=== PATIENT | female | born 1955 | race Hispanic/Latino ===

== ENCOUNTER 2023-05-29 20:56 | Emergency (ER) | payer BC ==
[~2023-05-29] VITALS: Ht 160 cm; Wt 72.6 kg
[2023-05-29 22:43] LABS: INFLUENZAE A&B ANTIGEN (RAPID) NEGATIVE (NEGATIVE); RESPIRATORY SYNC. VIRUS NEGATIVE (NEGATIVE)
[2023-05-29] MEDS ORDERED: MEDROL4 M2 PO (23:18)
[2023-05-29] MEDS ORDERED: ONDANSETRON ODT4 MG SL (23:18)
[2023-05-29] MEDS ORDERED: BENZONATATE200 MG PO (23:18)
[2023-05-29 23:40] VITALS: BP 144/81; PULSE 71; RESP 18; TEMP 98.6; O2SAT 100
== END 2023-05-29 23:42 | disposition home or self-care (01) ==
LOC: ER 21:00
DX: R05.9 Cough, unspecified (principal); R09.81 Nasal congestion; T78.49XA Other allergy, initial encounter; R11.2 Nausea with vomiting, unspecified; R51.9 Headache, unspecified; I10 Essential (primary) hypertension; F41.9 Anxiety disorder, unspecified; Z11.52 Encounter for screening for COVID-19
CPT/HCPCS: 71045; 87400; 87420; 99283; U0002

== ENCOUNTER 2024-06-15 11:49 | Emergency (ER) | payer BC ==
[~2024-06-15] VITALS: Ht 160 cm; Wt 72.6 kg
[~2024-06-15 11:49] MED LIST: BENZONATATE200 MG PO; MEDROL4 M2 PO; ONDANSETRON ODT4 MG SL
[2024-06-15 11:55] VITALS: TEMP 98.7
[2024-06-15] MEDS: KETOROLAC TROMETHAMINE 30 MG/ML VIAL IM STA (12:32)
[2024-06-15 14:00] VITALS: PULSE 69; RESP 16; O2SAT 100
== END 2024-06-15 14:00 | disposition home or self-care (01) ==
LOC: ER 11:54
DX: R07.89 Other chest pain (principal); I10 Essential (primary) hypertension; K21.9 Gastro-esophageal reflux disease without esophagitis; F41.9 Anxiety disorder, unspecified; Z85.3 Personal history of malignant neoplasm of breast
CPT/HCPCS: 71046; 93005; 99284; J1885